=== PATIENT | male | born 1945 ===

== ENCOUNTER 2018-01-19 16:32 | Outpatient (CLI) | payer OTHER ==
[~2018-01-19] VITALS: Ht 170.2 cm; Wt 68.0 kg
== END 2018-01-19 16:55 | disposition home or self-care (01) ==
LOC: OFIC 805 16:32
DX: H90.41 Sensorineural hearing loss, unilateral, right ear, with unrestricted hearing on the contralateral side (principal); H61.21 Impacted cerumen, right ear; R42 Dizziness and giddiness

== ENCOUNTER 2018-02-02 11:02 | Outpatient (CLI) | payer OTHER ==
[~2018-02-02] VITALS: Ht 152.4 cm; Wt 68.0 kg
== END 2018-02-02 11:20 | disposition home or self-care (01) ==
LOC: OFIC 805 11:02
DX: H81.11 Benign paroxysmal vertigo, right ear (principal); H93.11 Tinnitus, right ear

== ENCOUNTER 2018-06-20 09:50 | Emergency (ER) | payer OTHER ==
[~2018-06-20] VITALS: Ht 167.6 cm; Wt 68.0 kg
== END 2018-06-20 12:55 | disposition home or self-care (01) ==
LOC: ER 09:50
DX: B02.8 Zoster with other complications (principal); M54.89 Other dorsalgia